=== PATIENT | female | born 1970 | race Hispanic/Latino ===

== ENCOUNTER 2017-05-06 00:53 | Emergency (ER) | payer SELFPAY ==
[2017-05-06] MEDS ORDERED: FLEXERIL ONE (03:29)
[2017-05-06] MEDS ORDERED: TYLENOL #3 ONE (03:29)
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
[2017-05-06] MEDS ORDERED: FLEXERIL PO ONE (04:45)
[2017-05-06] MEDS ORDERED: TYLENOL #3 PO ONE (04:45)
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
[2017-05-06] MEDS ORDERED: NORCO 10/325 PO ONE (06:39)
[2017-05-06 07:01] VITALS: BP 124/78
== END 2017-05-06 07:07 | disposition home or self-care (01) ==
LOC: ED 00:53
DX: S22.42XA Multiple fractures of ribs, left side, initial encounter for closed fracture (principal); F17.200 Nicotine dependence, unspecified, uncomplicated; Z88.1 Allergy status to other antibiotic agents; Y04.8XXA Assault by other bodily force, initial encounter; Y93.89 Activity, other specified; Y92.89 Other specified places as the place of occurrence of the external cause; Y99.8 Other external cause status
CPT/HCPCS: 71010; 72040; 81025; 99283